=== PATIENT | female | born 1965 | race Caucasian/White ===

== ENCOUNTER 2020-01-12 07:27 | Inpatient (IN) | payer OTHER ==
[~2020-01-12 07:27] MED LIST: DEXAMETHASONE INJ 10 MG/ML VIAL ONE; LIDOCAINE 1% 10 ML VIAL INJ ONE; MAGNESIUM SULFATE INJ 1 GM/2 ML VIAL ONE; PHENYLEPHRINE INJ 1ML 10 MG/ML VIAL ONE; PROPOFOL 200 MG/20 ML VIAL IV ONE; SODIUM CHLORIDE 0.9% 50 ML VIAL ONE
[2020-01-12] MEDS ORDERED: SODIUM CHLORIDE 0.9% 1000ML 1,000 ML IVS ONE ×2 (07:52→09:41)
[2020-01-12] MEDS ORDERED: SODIUM CHLORIDE 0.9% (FLUSH) 10 ML SYG IV PRN (07:52)
[2020-01-12] MEDS ORDERED: ONDANSETRON INJ 4 MG/2 ML VIAL IV ONE (07:52)
--- NOTE | 2020-01-12 08:10 | ED.PDOC ---
History of Present Illness - General Chief Complaint: Abdominal Pain Stated Complaint: Abdominal Pain Time Seen by Provider: 01/12/20 07:46 Information Source: patient, RN notes reviewed, Vital Signs reviewed Exam Limitations: no limitations - History of Present Illness Initial Comments: Patient is a 54-year-old white female who presents from the [facility] with complaints of left lower quadrant pain. Patient has been in prison for the last 2 months. Patient denies any trauma to her abdomen or back. Patient noted approximately 24 hours ago some worsening left lower quadrant pain. Patient denies any fever, chills, nausea, vomiting, diarrhea. The pain is moderate in intensity. The pain is stabbing and cramping in nature. Nothing makes it better. Worse with palpation. Abdominal Pain Onset Location: LLQ Pain Radiation: no radiation Quality: moderate, stabbing Timing/Duration: 24 hours, getting worse Improving Factors: nothing Worsening Factors: movement Associated Symptoms: denies symptoms Review of Systems - Review of Systems Constitutional: States: no symptoms reported, see HPI. Denies: chills, diaphoresis, fever, malaise, weakness EENTM: States: no symptoms reported. Denies: eye pain, blurred vision, double vision Respiratory: States: no symptoms reported. Denies: cough, short of breath, wheezing Cardiology: States: no symptoms reported. Denies: chest pain, palpitations, syncope Gastrointestinal/Abdominal: States: see HPI, abdominal pain. Denies: constipation, diarrhea, nausea, vomiting Genitourinary: States: no symptoms reported. Denies: discharge, dysuria, frequency Musculoskeletal: States: no symptoms reported. Denies: back pain, neck pain Skin: States: no symptoms reported. Denies: change in color, rash Neurological: States: no symptoms reported. Denies: tingling, tremors, weakness Endocrine: States: no symptoms reported. Denies: increased hunger, increased thirst, increased urine Hematologic/Lymphatic: States: no symptoms reported. Denies: blood clots, easy bleeding All other Systems: Reviewed and Negative Past Medical History (General) - Patient Medical History Surgical History: cholecystectomy, tonsillectomy, Hysterectomy - Vaccination History Immunizations Up to Date: Yes - Activities of Daily Living Hospice Agency (if applicable):: None - Female History Patient : No Family Medical History - Family History Mother Family History: Unknown Physical Exam - Physical Exam General Appearance: Alert, Anxious, Obvious distress, Well Developed, Well Groomed, Well Hydrated, Well Nourished Eyes, Ears, Nose, Throat Exam: PERRL/EOMI, normal ENT inspection, pharynx normal Neck: non-tender, full range of motion, supple Respiratory: chest non-tender, lungs clear, normal breath sounds, no respiratory distress, no accessory muscle use Cardiovascular/Chest: normal peripheral pulses, regular rate, rhythm, no edema, no gallop, no JVD, no murmur Peripheral Pulses: No deficit Gastrointestinal/Abdominal: normal bowel sounds, soft, tenderness - Left lower quadrant. No peritoneal signs Back Exam: normal inspection, no CVA tenderness, no vertebral tenderness Extremity: normal range of motion, non-tender, normal inspection, no pedal edema, no calf tenderness Neurologic: dog trainer II-XII nml as tested, no motor/sensory deficits, alert, normal mood/affect, oriented x 3 Skin Exam: normal color, warm/dry Lymphatic: no adenopathy Progress - Progress Progress: Differential diagnosis: Colitis, diverticulitis, bowel obstruction, UTI among others. 01/12/20 10:58 CT shows patient was partial small bowel obstruction and inflammatory changes at the transition point concerning for infection. Plan on starting the patient on IV Flagyl. I have discussed placing an NG tube and admission to the hospital with the patient she voices understanding and agreement with the plan of care. I discussed this patient with Dr. Tolbert, the general surgeon, and he agrees with the plan of care and will consult with the patient when she is admitted. I discussed this patient with Zoltan Hanson, DISTRICT ADVISER, and he accepts patient for admission. Plan on keeping the patient n.p.o. at this time. Jaylen Russell M.D. #[id number] - Results/Orders Results/Orders: EKG performed 12 January 2020 at 0813 hrs.: Normal sinus rhythm with sinus arrhythmia at 72 bpm, normal axis deviation, no ST or T wave changes, normal EKG. No comparison EKG available at this time. EXAM DESCRIPTION: CT ABDOMEN AND PELVIS WITH CONTRAST CLINICAL HISTORY: LLQ pain COMPARISON: None Available. TECHNIQUE: CT of the abdomen and pelvis are performed during IV bolus administration of IV contrast. Oral contrast media is administered as well. FINDINGS: The lung bases are clear. Liver is normal in size and parenchymal appearance. Spleen, pancreas, and kidneys are unremarkable. Multiple dilated loops of proximal and mid small bowel are present with decompressed distal loops of small bowel. The transition point is in the left lower quadrant. There is a small amount of ascites and there is fluid specifically around thick-walled bowel loop in the left lower quadrant. No abscess. No free intraperitoneal air. No colonic abnormality. IMPRESSION: Partial small bowel obstruction mid small bowel left lower quadrant with inflamed appearing loop of small bowel. Consider inflammatory bowel disease. Neoplasm considered less likely. This exam was performed according to our departmental dose-optimization program, which includes automated exposure control, adjustment of the mA and/or kV according to patient size and/or use of iterative reconstruction technique. Electronically signed by: Daniel Moore MD 01/12/2020 9:54 AM 01/12/20 07:52 Sodium Chloride 0.9% (Flush) [Saline Flush Syringe] 10 ml IV PRN PRN 01/12/20 07:57 Hold Metformin x 48Hrs [id number] IV Care:Saline Lock per Protoc QSHIFT 01/12/20 08:00 EKG STAT 01/12/20 10:15 ED Intent to Admit Routine Laboratory Results - last 24 hr 01/12/20 01/12/20 01/12/20 08:09 08:09 10:00 WBC 11.2 H RBC 3.33 L Hgb 11.7 L Hct 34.3 L MCV 103.0 H MCH 35.0 H MCHC 34.0 RDW 14.4 Plt Count 345 MPV 6.8 L Absolute Neuts (auto) 6.60 Absolute Lymphs (auto) 3.50 H Absolute Monos (auto) 0.90 H Absolute Eos (auto) 0.10 Absolute Basos (auto) 0.10 Neutrophils % 59.3 Lymphocytes % 31.6 Monocytes % 7.6 Eosinophils % 0.6 L Basophils % 0.9 Sodium 139 Potassium 3.7 Chloride 96 L Carbon Dioxide 30 Anion Gap 16.7 BUN 20 H Creatinine 1.00 BUN/Creatinine Ratio 20.0 Random Glucose 112 H Serum Osmolality 280.9 Calcium 9.5 Total Bilirubin 0.9 Direct Bilirubin 0.1 Indirect Bilirubin 0.8 AST 22 ALT 20 Alkaline Phosphatase 53 Serum Total Protein 7.5 Albumin 4.2 Lipase 47 Urine Color Yellow Urine Appearance Clear Urine pH 7.0 Ur Specific [place] 1.020 Urine Protein Negative Urine Glucose (UA) Negative Urine Ketones Negative Urine Blood Moderate H Urine Nitrite Negative Urine Bilirubin Negative Urine Urobilinogen 0.2 Ur Leukocyte Esterase Negative Urine RBC 5-10 H Urine WBC 3-5 H Ur Epithelial Cells 0-1 Amorphous Sediment Trace Urine Bacteria Rare Vital Signs 01/12/20 01/12/20 01/12/20 07:34 07:40 08:27 Temperature 97.2 F L 97.2 F L Pulse Rate [ 80 80 79 brachial] Respiratory 20 20 20 Rate Blood Pressure 169/91 142/89 [Left Arm] O2 Sat by Pulse 100 99 Oximetry 01/12/20 01/12/20 09:27 10:00 Temperature 97.2 F L 97.2 F L Pulse Rate [ 74 87 brachial] Respiratory 18 18 Rate Blood Pressure 137/81 117/87 [Left Arm] O2 Sat by Pulse 99 100 Oximetry Departure - Departure Clinical Impression: LLQ abdominal pain, Partial small bowel obstruction Time of Disposition: 11:00 - ] Disposition: Admit Patient Condition: Fair Departure Forms: ED Discharge - Pt. Copy, Patient Portal Self Enrollment Instructions: DI for Abdominal Pain-Adult Decision To Admit - Decistion To Admit Decision to Admit Date: 01/12/20 Decision to Admit Time: 10:15
--- NOTE | 2020-01-12 09:56 | CT ---
EXAM DESCRIPTION: CT ABDOMEN AND PELVIS WITH CONTRAST CLINICAL HISTORY: LLQ pain COMPARISON: None Available. TECHNIQUE: CT of the abdomen and pelvis are performed during IV bolus administration of IV contrast. Oral contrast media is administered as well. FINDINGS: The lung bases are clear. Liver is normal in size and parenchymal appearance. Spleen, pancreas, and kidneys are unremarkable. Multiple dilated loops of proximal and mid small bowel are present with decompressed distal loops of small bowel. The transition point is in the left lower quadrant. There is a small amount of ascites and there is fluid specifically around thick-walled bowel loop in the left lower quadrant. No abscess. No free intraperitoneal air. No colonic abnormality. IMPRESSION: Partial small bowel obstruction mid small bowel left lower quadrant with inflamed appearing loop of small bowel. Consider inflammatory bowel disease. Neoplasm considered less likely. This exam was performed according to our departmental dose-optimization program, which includes automated exposure control, adjustment of the mA and/or kV according to patient size and/or use of iterative reconstruction technique. Electronically signed by: Daniel Moore MD 01/12/2020 9:54 AM CDT
[2020-01-12] MEDS ORDERED: LIDOCAINE 4% TOPICAL 40 MG/ML SYG TOP ONE ×2 (10:21→10:24)
[2020-01-12] MEDS ORDERED: levoFLOXacin 750MG IV 750 MG in PREMIX BAG 1 BAG IVPB ONE (11:09)
[2020-01-12] MEDS ORDERED: metroNIDAZOLE IV PREMIX 500MG 500 MG in PREMIX BAG 1 BAG IVPB ONE (11:10)
--- NOTE | 2020-01-12 14:36 | CONS ---
DATE OF CONSULTATION: 01/12/20 HISTORY OF PRESENT ILLNESS: The patient is a 54-year-old female who presented to the Emergency Room from the [facility] with complaint of left lower quadrant abdominal pain. She had been in the [facility] for two months. There is no history of trauma. The patient stated that approximately 24 hours ago, the pain began without fever, chills, nausea, vomiting or diarrhea. She states the pain is cramping in nature. It is worse with touch. There is no radiation. She denies urinary tract symptoms or cough. PAST MEDICAL HISTORY: 1. Rheumatoid arthritis. 2. Hypertension. PAST SURGICAL HISTORY: 1. Cholecystectomy. 2. Tonsillectomy. 3. Hysterectomy. SOCIAL HISTORY: The patient is incarcerated. 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 REVIEW OF SYSTEMS: GENERAL: No fever, chills or weakness. HEENT: Denies problems with her vision. RESPIRATORY: Denies upper respiratory symptoms except complaining of the nasogastric tube. Denies cough or shortness of breath. CARDIAC: Denies chest pain. GASTROINTESTINAL: As noted above. GENITOURINARY: Denies urinary tract symptoms. PHYSICAL EXAMINATION: GENERAL: The patient is awake, alert, in obvious discomfort. VITAL SIGNS: The patient is currently afebrile, normotensive. HEENT: Sclerae nonicteric. Mucous membranes moist. NECK: Without adenopathy. BACK: Without CVA tenderness. CHEST: Equal breath sounds bilaterally. HEART: Regular rate and rhythm. ABDOMEN: Soft, distended, tender specifically in the left lower quadrant with rebound tenderness in the left lower quadrant. PELVIC/RECTAL: Deferred. EXTREMITIES: Without cyanosis, clubbing or edema. LABORATORY: Minimally elevated white blood cell count of 11.2 with 59% neutrophils, hemoglobin 11.7, platelet count 345. Creatinine 1, potassium 3.7, blood sugar 112. Liver functions other than lipase all within normal limits. Urine reveals 5 to 10 red cells, 3 to 10 white cells, no leukocyte esterase, rare bacteria. Specific gravity 1.020. RADIOLOGY: CT scan reveals partial small bowel obstruction with transition point in the left lower quadrant with a loop of bowel which has inflammatory changes around it without a discreet abscess. There is no free air or free fluid. ASSESSMENT: 1. Left lower quadrant abdominal pain with peritoneal signs a partial small bowel obstruction with its transition point appearing to be in the left lower quadrant. RECOMMENDATION: The patient has been started on Levaquin and Flagyl and is being consented for exploratory laparotomy and indicated procedures. #[id number] [facility]
[2020-01-12] MEDS ORDERED: SUGAMMADEX SODIUM 200 MG/2 ML VIAL IV ONE (15:20)
[2020-01-12] MEDS ORDERED: MIDAZOLAM INJ 2 MG/2 ML VIAL ONE (15:21)
[2020-01-12] MEDS ORDERED: FAMOTIDINE INJ 10 MG/ML VIAL IV ONE (15:21)
[2020-01-12] MEDS ORDERED: KETAMINE HCL 100 MG/ML VIAL ONE (15:21)
[2020-01-12] MEDS ORDERED: ROCURONIUM BROMIDE 10 MG/ML VIAL ONE (15:21)
[2020-01-12] MEDS ORDERED: fentaNYL CITRATE INJ 50 MCG/ML 5 ML AMP ONE (15:21)
[2020-01-12] MEDS ORDERED: ELECTROLYTE-A 1,000 ML IVS ONE (15:59)
[2020-01-12] MEDS ORDERED: ONDANSETRON INJ 4 MG/2 ML VIAL IV PRN (17:01)
--- NOTE | 2020-01-12 17:29 | HP ---
SUPERVISING PHYSICIAN: Dony Dolan M.D. CHIEF COMPLAINT: Abdominal pain. HISTORY OF PRESENT ILLNESS: Ms. Santana is a 54 year-old female patient that is currently incarcerated at the [facility]. She presented to the Emergency Room this morning complaining of left lower quadrant pain. She denied any actual trauma or back pain. She noted her symptoms started about 24 hours previously and had slowly worsened to the left lower quadrant. She denied any actual fever or chills, nausea or vomiting. Nothing makes it better. Palpation seems to worsen her pain. She was seen in consultation by Dr. Cárdenas after CT of the abdomen and pelvis that showed a partial small bowel obstruction of the left lower quadrant with inflamed loop. Initial laboratory studies did show she had a leukocytosis of 11,200 but no left shift at that time. Initial chemistries were fairly unremarkable. Electrolytes were normal. Creatinine was 1.0. Liver functions were all within normal limits. Lipase was normal. Urinalysis did show a moderate amount of blood. RBCs on microscopic were 5 to 10, 3 to 5 WBCs, rare bacteria. She was started on antibiotics with Flagyl and Levaquin, and then scheduled to go to the [facility] for surgical intervention for a small bowel obstruction. She was in stable condition at time of admission. PAST MEDICAL HISTORY: 1. Rheumatoid arthritis. 2. Hypertension. PAST SURGICAL HISTORY: 1. Cholecystectomy. 2. Tonsillectomy. 3. Hysterectomy. HOME MEDICATIONS: No home medications listed. ALLERGIES: NO KNOWN DRUG ALLERGIES. FAMILY HISTORY: Noncontributory. SOCIAL HISTORY: The patient is currently incarcerated in the [facility]. She has a history of smoking but quit 3 months previously. She has not had any history of drug use for 4 months and does not drink on a regular basis. REVIEW OF SYSTEMS: CONSTITUTIONAL: Denies any fevers, chills, weakness with some general malaise. HEENT: Negative for headaches, vision changes, sore throat, nasal congestion or ear aches. RESPIRATORY: Denies any coughing, wheezing or shortness of breath other than just associated with the nasogastric tube that is in place. CARDIOVASCULAR: Denies any chest pains, palpitations or syncopal episodes. GASTROINTESTINAL: As noted in History of Present Illness. GENITOURINARY: Denies any dysuria, hematuria or polyuria. MUSCULOSKELETAL: Denies any arthralgia, joint swelling. SKIN: Denies any lesions, rashes, unexplained changes or moles. NEUROLOGIC: Denies any focal motor sensory deficits. Denies any ataxia, seizures, headaches, vision changes, syncopal episodes. HEMATOLOGIC: Denies any unexplained bleeding, bruising or transfusion reactions. PHYSICAL EXAMINATION: VITAL SIGNS: Temperature 97.2, pulse 87, blood pressure 117/87, respirations 18, satting 100% on room air. GENERAL: The patient seems to be resting comfortably in no obvious distress. She is well nourished and well hydrated. HEENT: Tympanic membranes clear bilaterally. Oropharynx is pink, moist without any lesions. NECK: Supple, nontender with full range of motion. No jugular venous distention noted. CHEST: Lung sounds were clear to auscultation bilaterally without any rhonchi, wheezes or rales. HEART: Regular rate and rhythm without any appreciable murmurs, gallops, or rubs. ABDOMEN: Noted tenderness on palpation of the left lower quadrant. No peritoneal signs. No point tenderness. Bowel sounds were active. BACK: Without any CVA or vertebral tenderness. EXTREMITIES: Without any clubbing, cyanosis or edema. NEUROLOGIC: Cranial nerves II-XII are grossly intact. Facial features are symmetrical. Extraocular movements are within normal limits. She had no notable nystagmus. She is alert and oriented times three. SKIN: Warm, pink and dry. LABORATORY: White count 11,200, hemoglobin 11.7, hematocrit 34.3, platelet count 345,000. Differential did show to be without a left shift currently. Chemistry showed normal electrolytes with creatinine of 1.0, glucose 112, calcium normal at 9.5. Liver functions all are within normal limits. Lipase normal at 47. Urinalysis did show a moderate amount of blood with 5 to 10 RBCs, 3 to 5 WBCs, trace of amorphous material with rare bacteria. RADIOLOGY: Again, she had an abdomen and pelvis CT as noted above with contrast that showed a partial small bowel obstruction in the left lower quadrant that was inflamed in loops of small bowel. ASSESSMENT: 1. Small bowel obstruction left lower quadrant with transition point as noted on CT pending surgical repair with surgical consultation with Dr. Cárdenas. 2. Chronic hypertension. 3. Rheumatoid arthritis. PLAN: Ms. Santana was seen in consultation in the Emergency Room with Dr. Cárdenas who is planning to take her to surgery to surgically resolve the small bowel obstruction. She is NPO at this point. She will be provided pain management as per protocol. She will be on DVT prophylaxis postoperatively. Anticipated length of stay to be at least 2 to 3 days. Until we can transition to outpatient management will continue to monitor and treat as needed. #[id number] MTDD
[2020-01-12] MEDS ORDERED: metroNIDAZOLE IV PREMIX 500MG 100 ML IVPB ONE (18:10)
[2020-01-12] MEDS: KCL 20MEQ/D5 1/2NS 1,000 ML IVS PRN (18:33)
[2020-01-12] MEDS: PANTOPRAZOLE SODIUM IV 40 MG VIAL IV SCH (18:33)
[2020-01-12] MEDS: metroNIDAZOLE IV PREMIX 500MG 500 MG in PREMIX BAG 1 BAG IVPB SCH (18:33)
[2020-01-12] MEDS ORDERED: ACETAMINOPHEN IV 1000MG 1,000 MG in PREMIX BOTTLE 1 BOTTLE IVPB ONE (22:04)
[2020-01-12] MEDS ORDERED: ACETAMINOPHEN IV 1000MG 100 ML ONE (22:07)
[2020-01-12] MEDS: MORPHINE SULFATE INJ 10 MG/ML VIAL IV PRN (23:28)
[2020-01-13] MEDS ORDERED: metroNIDAZOLE IV PREMIX 500MG 100 ML IVPB ONE (01:32)
[2020-01-13] MEDS: metroNIDAZOLE IV PREMIX 500MG 500 MG in PREMIX BAG 1 BAG IVPB SCH ×3 (01:38→16:55)
[2020-01-13] MEDS: MORPHINE SULFATE INJ 10 MG/ML VIAL IV PRN ×3 (01:38→11:46)
[2020-01-13] MEDS: KCL 20MEQ/D5 1/2NS 1,000 ML IVS PRN ×2 (05:51→20:52)
[2020-01-13] MEDS: amLODIPine BESYLATE 5 MG TAB PO SCH (08:50)
[2020-01-13] MEDS ORDERED: NON-FORMULARY MEDICATION 1 EA MIS (Lisinopril [Lisinopril] 20 MG) PO SCH (09:00)
--- NOTE | 2020-01-13 09:00 | OP ---
DATE OF PROCEDURE: 01/12/20 PREOPERATIVE DIAGNOSIS: 1. Left lower quadrant abdominal pain. 2. Small bowel obstruction. POSTOPERATIVE DIAGNOSIS: 1. Left lower quadrant abdominal pain. 2. Small bowel obstruction. 3. Secondary to internal hernia from an adhesion. PROCEDURE: 1. Exploratory laparotomy. 2. Lysis of adhesions. 3. Reduction of internal hernia. SURGEON: Kushal Cárdenas MD STOCK CRANE OPERATOR: Dony Palm MD ANESTHESIA: General endotracheal anesthesia. INDICATION: The patient is a 54-year-old female who is a prisoner who developed abdominal pain with nausea and vomiting and presented to the Emergency Room where workup revealed a CT scan showing an edematous loop of small bowel in the left lower quadrant with collapsed loops distal to it and significant inflammatory process in that area. She had referred tenderness in that area, so she was brought to the Surgical Suite this afternoon for exploratory laparotomy and indicated procedures after the risks, benefits and alternatives were discussed and accepted. FINDINGS/PROCEDURE: There was a loop of bowel that was erythematous and edematous and was looped under an adhesion. When this adhesion was lysed, it easily came free and was left out for observation while we ran the small bowel. No other areas of concern were identified. There were some other adhesions from the omentum to the midline incision which were taken down using electrocautery. When this was done, the small bowel and omentum was reduced back into the abdomen. The midline incision was closed with a running #1 PDS looped. When this was tightened and tied, the wound was irrigated with saline. The subcutaneous tissue was approximated with interrupted 3-0 Monocryl sutures and the skin edges were approximated with a skin stapler. Sterile pressure dressing was applied. The patient was awakened and taken to the Recovery Room in good and stable condition. Estimated blood loss was less than 25 mL. All sponge, needle and instrument counts were correct. #[id number] [facility]
[2020-01-13] MEDS: DEXAMETHASONE INJ 4 MG/ML VIAL IV SCH (09:13)
[2020-01-13] MEDS ORDERED: MAGNESIUM HYDROXIDE 30 ML UD NG ONE (11:14)
[2020-01-13] MEDS: levoFLOXacin 500MG IV 500 MG in PREMIX BAG 1 BAG IVPB SCH (11:47)
[2020-01-13] MEDS: ACETAMINOPHEN W/COD #3 TAB 1 EA TAB PO PRN ×2 (14:03→20:52)
--- NOTE | 2020-01-13 16:52 | PN ---
SUPERVISING PHYSICIAN: Dony Dolan MD DATE: 01/13/20 SUBJECTIVE: The patient still has an NG in place which she is anxious to get out. She has been utilizing a patch for splinting when coughing. Otherwise, she has no other complaints. OBJECTIVE: VITAL SIGNS: She remains afebrile with temperature 98, pulse 74, blood pressure 125/74, respirations 14, saturation 99% on room air. GENERAL: The patient is resting comfortably. NG tube is in place. She is alert. CHEST: Lungs are clear to auscultation bilaterally. HEART: Regular rate and rhythm. ABDOMEN: Soft with tenderness noted over the abdominal incision with bowel sounds present. NEUROLOGIC: Alert and oriented times three. LABORATORY: White count 7,500, hemoglobin 10.7, hematocrit 31.2, platelet count 293,000. Differential without a left shift. Chemistry showed sodium 134 corrected to 136 with glucose 157, potassium 4.9, BUN 18, creatinine 1.1. Liver functions all within normal limits. MICROBIOLOGY: No specimens submitted for review. RADIOLOGY: No additional radiographic studies today. ASSESSMENT: 1. Small bowel obstruction secondary to adhesions status post exploratory laparotomy, postoperative day #1. 2. Chronic hypertension. 3. Rheumatoid arthritis. PLAN: We will continue to follow the patient along with Dr. Cárdenas. After discussion with Dr. Cárdenas, the patient is going to be advanced on a clear liquid diet today. If she tolerates that at least through dinner, the NG tube will be removed and we will start her on a more substantial diet tomorrow. I anticipate hopefully being able to discharge in the next 24 to 48 hours. Until then, we will continue to monitor and treat as needed. #[id number] MTDD
[2020-01-13] MEDS: PANTOPRAZOLE SODIUM IV 40 MG VIAL IV SCH (16:55)
[2020-01-13] MEDS ORDERED: LISINOPRIL 10 MG TAB ONE (21:30)
[2020-01-13] MEDS ORDERED: LISINOPRIL 10 MG TAB PO ONE (21:31)
[2020-01-13] MEDS ORDERED: amLODIPine BESYLATE 5 MG TAB PO ONE (21:32)
[2020-01-14] MEDS: metroNIDAZOLE IV PREMIX 500MG 500 MG in PREMIX BAG 1 BAG IVPB SCH ×3 (01:34→17:07)
[2020-01-14] MEDS: ACETAMINOPHEN W/COD #3 TAB 1 EA TAB PO PRN ×4 (01:34→21:15)
[2020-01-14] MEDS ORDERED: LISINOPRIL 10 MG TAB ONE (07:00)
[2020-01-14] MEDS: amLODIPine BESYLATE 5 MG TAB PO SCH (08:19)
[2020-01-14] MEDS: DEXAMETHASONE INJ 4 MG/ML VIAL IV SCH (08:19)
[2020-01-14] MEDS: LISINOPRIL 10 MG TAB PO SCH (08:19)
--- NOTE | 2020-01-14 11:30 | PN ---
SUPERVISING PHYSICIAN: Dony Dolan MD DATE: 01/14/20 SUBJECTIVE: The patient's NG tube has been removed. She feels much better today. She has had a little bit of gas, no actual bowel movement yet. She has had just some soreness but no actual pain in the abdomen. No nausea or vomiting. She is tolerating a clear liquid diet. She remains afebrile. OBJECTIVE: VITAL SIGNS: Temperature 98.6, pulse 74, blood pressure 122/83, respirations 16, oxygen saturation 97% on room air. GENERAL: The patient looks to be resting comfortably without any [id number]. She is alert and oriented x3. . CHEST: Clear to auscultation bilaterally. HEART: Regular rate and rhythm. ABDOMEN: Soft with abdominal incision dressing in place whish is clean and dry, just a little tenderness with palpation over the incision site. Bowel sounds are active. EXTREMITIES: Without edema. NEUROLOGIC: Alert and oriented times three. LABORATORY: No additional lab today. RADIOLOGY: No additional radiographic studies today. ASSESSMENT: 1. Small bowel obstruction secondary to adhesions status post exploratory laparotomy, postoperative day #2. 2. Chronic hypertension. 3. Rheumatoid arthritis. PLAN: We will continue to follow the patient along with Dr. Cárdenas. I believe at this point we will just keep her on clear liquids, advance her diet as tolerated. Anticipate hopefully discharge tomorrow. Until we can transition patient to outpatient management, we will continue to monitor and treat as needed. #[id number] MTDD
[2020-01-14] MEDS: levoFLOXacin 500MG IV 500 MG in PREMIX BAG 1 BAG IVPB SCH (12:49)
[2020-01-14] MEDS: PANTOPRAZOLE SODIUM IV 40 MG VIAL IV SCH (17:06)
[2020-01-15] MEDS: metroNIDAZOLE IV PREMIX 500MG 500 MG in PREMIX BAG 1 BAG IVPB SCH ×2 (02:17→08:52)
[2020-01-15] MEDS: ACETAMINOPHEN W/COD #3 TAB 1 EA TAB PO PRN (05:04)
[2020-01-15] MEDS: LISINOPRIL 10 MG TAB PO SCH (08:52)
[2020-01-15] MEDS: amLODIPine BESYLATE 5 MG TAB PO SCH (08:52)
[2020-01-15] MEDS: DEXAMETHASONE INJ 4 MG/ML VIAL IV SCH (08:52)
[2020-01-15 10:36] VITALS: BP 126/75; TEMP 98.6; O2SAT 97
[2020-01-15] MEDS: levoFLOXacin 500MG IV 500 MG in PREMIX BAG 1 BAG IVPB SCH ×2 (11:40→14:17)
[2020-01-15] MEDS ORDERED: levoFLOXacin 500 MG TAB ONE (12:10)
[2020-01-15] MEDS ORDERED: levoFLOXacin 500 MG TAB PO SCH (12:30)
--- NOTE | 2020-01-16 09:54 | DS ---
ADMISSION DIAGNOSES: 1. Small bowel obstruction left lower quadrant with transition point as noted on CT pending surgical repair with surgical consultation with Dr. Cárdenas. 2. Chronic hypertension. 3. Rheumatoid arthritis. DISCHARGE DIAGNOSES: 1. Small bowel obstruction secondary to adhesions status post exploratory laparotomy, postoperative day #3 2. Chronic hypertension. 3. Rheumatoid arthritis. REASON FOR HOSPITALIZATION: Ms. Santana is a 54 year-old female patient that is currently incarcerated at the [facility]. She presented to the Emergency Room this morning complaining of left lower quadrant pain. She denied any actual trauma or back pain. She noted her symptoms started about 24 hours previously and had slowly worsened to the left lower quadrant. She denied any actual fever or chills, nausea or vomiting. Nothing makes it better. Palpation seems to worsen her pain. She was seen in consultation by Dr. Cárdenas after CT of the abdomen and pelvis that showed a partial small bowel obstruction of the left lower quadrant with inflamed loop. Initial laboratory studies did show she had a leukocytosis of 11,200 but no left shift at that time. Initial chemistries were fairly unremarkable. Electrolytes were normal. Creatinine was 1.0. Liver functions were all within normal limits. Lipase was normal. Urinalysis did show a moderate amount of blood. RBCs on microscopic were 5 to 10, 3 to 5 WBCs, rare bacteria. She was started on antibiotics with Flagyl and Levaquin, and then scheduled to go to the [facility].R[facility] for surgical intervention for a small bowel obstruction. She was in stable condition at time of admission. CONSULTATION: Surgical consultation with Dr. Kushal Cárdenas. Please see his consultation note. PROCEDURES: 1. Exploratory laparotomy. 2. Lysis of adhesions. 3. Reduction of internal hernia. Please see Dr. Cárdenas's postoperative note. LABORATORY STUDIES: Discharge white count 7,500, hemoglobin 10.7, hematocrit 31.2, platelet count 293,000. Differential showed a slight left shift. Chemistries showed sodium 134, creatinine 1.11. Liver functions all within normal limits. Urinalysis showed RBCs 5 to 10, WBCs 3 to 5. MICROBIOLOGY: No specimens were submitted. RADIOLOGY: She had abdominal/pelvic CT on admission and per radiology interpretation showed partial small bowel obstruction, mid small bowel, left lower quadrant with inflamed appearing loop of small bowel considering inflammatory bowel disease. Please see that note for details. HOSPITAL COURSE: Ms. Santana was admitted from the Emergency Room and sent directly to the operating room for laparoscopic reduction of a small bowel obstruction and hernia performed by Dr. Cárdenas. The patient did well intraoperatively. She had no complications intraoperatively or postoperative. After surgery, she was admitted to the medical/surgical floor. Clinically, she progressed well. She tolerated her diet and advanced her diet as tolerated. She was ambulating without any complications. She had a bowel movement prior to discharge and good pain control. It was felt that she was clinically stable enough to continue with outpatient management. PLAN: Ms. Santana was discharged on 01/15/20 with instructions to followup with Dr. Cárdenas on 01/25/20 at 1345 in his office. She was to resume her usual diet. She was not increase activity as tolerated with no lifting or twisting until cleared by Dr. Cárdenas. Wound management was may shower but no tub bath. Jacky to be removed by Dr. Cárdenas on his appointment. DISCHARGE MEDICATIONS PRESCRIBED: Tylenol no. 3, one tablet every 4 hours as needed, #15, no refills. All other medications prior to hospitalization are continued. CONDITION ON DISCHARGE: Stable and improved. DISPOSITION: The patient is discharged home. #[id number] MTDD
== END 2020-01-15 12:55 | disposition home or self-care (01) | DRG 355 ==
LOC: ER 07:27 → AMB 15:19 → OBSVTOIN 17:27 → MS 17:27
PROVIDERS: ADMIT Nurse Practitioner Family; ATTEND Nurse Practitioner Family
PROC: BW211ZZ Computerized Tomography (CT Scan) of Abdomen and Pelvis using Low Osmolar Contrast (ICD-10-PCS; 2020-01-12)
PROC: 0WQF0ZZ Repair Abdominal Wall, Open Approach (ICD-10-PCS; principal; 2020-01-12 15:26)
DX: K56.51 Intestinal adhesions [bands], with partial obstruction (principal); M10.9 Gout, unspecified; I10 Essential (primary) hypertension; Z87.891 Personal history of nicotine dependence